=== PATIENT | male | born 1970 | race Hispanic/Latino ===

== ENCOUNTER 2018-08-04 21:25 | Inpatient (IN) | payer OTHER ==
[~2018-08-04] VITALS: Ht 167.6 cm; Wt 102.1 kg
[2018-08-04] MEDS ORDERED: CEFTRIAXONE SODIUM 1 GM ONE ×2 (22:10→22:23)
[2018-08-04] MEDS ORDERED: ACETAMINOPHEN EXTRA STRENGTH 500 MG TABLET ONE (22:11)
[2018-08-04 22:16] LABS: BASOPHILS % (AUTO) 0.4 % (0.0-5.0); EOSINOPHILS % (AUTO) 2.6 % (0.0-8.0); HEMATOCRIT 31.9 % (42-54); MEAN CORPUSCULAR HEMOGLOBIN 32.1 pg (27.0-33.0); MEAN CORPUSCULAR HGB CONC 33.3 g/dL (32.0-36.0); MEAN CORPUSCULAR VOLUME 96.2 fL (79-99); MONOCYTES % (AUTO) 12.5 % (3.0-13.0); NEUTROPHILS % (AUTO) 65.5 % (40.0-77.0); NUCLEATED RED BLOOD CELLS 0.1 % (0.0-0.19); PLATELET COUNT (AUTO) 112 K/uL (130-400); RED BLOOD CELL COUNT(AUTO) 3.31 MIL/uL (4.50-6.20); RED CELL DISTRIBUTION WIDTH 13.6 % (11.0-15.5); WHITE BLOOD COUNT (AUTO) 7.9 K/uL (4.8-10.8)
[2018-08-04 22:27] LABS: CARBON DIOXIDE 23 mmol/L (21-32); CHLORIDE 109 mmol/L (101-111); CREATININE 0.8 mg/dL (0.5-1.5); GLOMERULAR FILTR. RATE CALC 109 mL/min (>60); GLUCOSE,RANDOM 117 mg/dL (70-105); POTASSIUM 3.6 mmol/L (3.5-5.1); SODIUM SERUM 142 mmol/L (136-145); UREA NITROGEN, BLOOD 10 mg/dL (7-18)
[2018-08-04 22:31] LABS: INR 1.03 (0.85-1.15); PROTHROMBIN TIME 10.8 SEC (9.6-11.6)
[2018-08-04 22:38] LABS: ALANINE AMINOTRANSFERASE 18 U/L (12-78); ALBUMIN 2.9 g/dL (3.5-5.0); ASPARTATE AMINOTRANSFERASE 19 U/L (10-37); BILIRUBIN,TOTAL 0.1 mg/dL (0.2-1.0); CREATINE KINASE, TOTAL 133 U/L (21-232); MYOGLOBIN 32 ng/mL (10-92); TOTAL PROTEIN, SERUM 6.1 g/dL (6.0-8.3); TROPONIN I < 0.04 ng/mL (0.00-0.06)
[2018-08-04] MEDS ORDERED: KETOROLAC TROMETHAMINE 30MG/ML ONE (23:31)
[2018-08-04 23:36] LABS: BILIRUBIN,URINE Negative (NEGATIVE); COLOR,URINE Yellow (YELLOW); GLUCOSE, URINE (UA) Negative (NEGATIVE); KETONES,URINE Negative (NEGATIVE); LEUKOCYTE ESTERASE ,URINE Negative (NEGATIVE); NITRATE,URINE Negative (NEGATIVE); OCCULT BLOOD,URINE Negative (NEGATIVE); PH,URINE >=9.0 (5.0-8.0); PROTEIN,URINE Negative (NEGATIVE); UROBILINOGEN,URINE 0.2 mg/dL (0.2-1.0)
[2018-08-04 23:37] LABS: APPEARANCE,URINE SLIGHTLY CLOUDY (CLEAR)
[2018-08-04 23:44] LABS: AMPHET/METH SCREEN,URINE NEGATIVE (NEGATIVE); BARBITURATE SCREEN, URINE NEGATIVE (NEGATIVE); BENZODIAZEPINES SCREEN,URINE NEGATIVE (NEGATIVE); CANNABINOID SCREEN,URINE NEGATIVE (NEGATIVE); COCAINE SCREEN,URINE NEGATIVE (NEGATIVE); OPIATE SCREEN,URINE NEGATIVE (NEGATIVE); PHENCYCLIDINE SCREEN,URINE NEGATIVE (NEGATIVE)
[2018-08-04] MEDS ORDERED: FOSPHENYTOIN SODIUM 500 MG/10ML VIAL IJ ONE (23:56)
[2018-08-05 00:05] LABS: BACTERIA,URINE Few /HPF (None Seen); WBC,URINE 0-1 /HPF (0-1)
[2018-08-05 00:06] LABS: AMORPHOUS SEDIMENT,UR Many /LPF (None Seen); SQUAMOUS EPITHELIAL CELL,UR 0-2 /HPF (0-2)
[2018-08-05] MEDS ORDERED: ACETAMINOPHEN 325 MG TAB PO PRN ×2 (01:30)
[2018-08-05] MEDS ORDERED: MORPHINE SULFATE 4 MG/1ML SYG IV PRN (01:30)
[2018-08-05] MEDS ORDERED: ONDANSETRON HCL 4 MG/2 ML VIAL IV PRN (01:30)
[2018-08-05] MEDS ORDERED: CEFTRIAXONE SODIUM 1 GM IV SCH (01:30)
[2018-08-05] MEDS ORDERED: LORAZEPAM 2 MG/ML 1 ML VIAL IVP ONE (01:45)
[2018-08-05] MEDS ORDERED: CEFTRIAXONE SODIUM 1 GM ONE (01:55)
[2018-08-05] MEDS ORDERED: LORAZEPAM 2 MG/ML 1 ML VIAL ONE (02:45)
[2018-08-05] MEDS ORDERED: LEVETIRACETAM 500 MG/5 ML SD VIAL IV ONE (02:45)
[2018-08-05] MEDS ORDERED: FENTANYL CITRATE PF 50 MCG/1 ML 2ML VIAL ONE (05:00)
[2018-08-05] MEDS: LEVETIRACETAM 1,000 MG in SODIUM CHLORIDE 0.9% 100 ML IV SCH ×3 (06:00→22:00)
[2018-08-05] MEDS ORDERED: FAMOTIDINE/PF 20 MG/2 ML VIAL IV ONE ×2 (10:59→21:29)
[2018-08-05] MEDS ORDERED: ONDANSETRON HCL 4 MG/2 ML VIAL ONE ×2 (12:31→18:53)
[2018-08-05] MEDS ORDERED: MORPHINE SULFATE 4 MG/1ML SYG ONE ×2 (12:32→18:53)
[2018-08-05] MEDS ORDERED: LEVETIRACETAM 500 MG TABLET PO ONE (21:06)
[2018-08-05] MEDS ORDERED: ACETAMINOPHEN 325 MG TAB ONE (22:51)
[2018-08-06] MEDS ORDERED: CEFTRIAXONE SODIUM 1 GM ONE (03:22)
[2018-08-06] MEDS: LEVETIRACETAM 1,000 MG in SODIUM CHLORIDE 0.9% 100 ML IV SCH ×2 (06:00→14:00)
[2018-08-06 07:09] LABS: BASOPHILS % (AUTO) 0.5 % (0.0-5.0); EOSINOPHILS % (AUTO) 0.9 % (0.0-8.0); HEMATOCRIT 44.9 % (42-54); LYMPHOCYTES % (AUTO) 14.3 % (21.0-51.0); MEAN CORPUSCULAR HGB CONC 33.7 g/dL (32.0-36.0); MEAN CORPUSCULAR VOLUME 94.9 fL (79-99); NEUTROPHILS % (AUTO) 68.3 % (40.0-77.0); PLATELET COUNT (AUTO) 154 K/uL (130-400); RED BLOOD CELL COUNT(AUTO) 4.73 MIL/uL (4.50-6.20); RED CELL DISTRIBUTION WIDTH 13.7 % (11.0-15.5); WHITE BLOOD COUNT (AUTO) 6.4 K/uL (4.8-10.8)
[2018-08-06 07:29] LABS: CREATININE 0.8 mg/dL (0.5-1.5); POTASSIUM 4.2 mmol/L (3.5-5.1)
[2018-08-06] MEDS ORDERED: LEVETIRACETAM 500 MG TABLET PO ONE (08:14)
[2018-08-06] MEDS ORDERED: FAMOTIDINE/PF 20 MG/2 ML VIAL IV ONE (08:19)
[2018-08-06] MEDS ORDERED: GUAIFENESIN-DM 200/20 MG 10 ML PO PRN (11:30)
[2018-08-06] MEDS ORDERED: ACETAMINOPHEN 325 MG TAB ONE (12:39)
[2018-08-06] MEDS ORDERED: LEVOFLOXACIN 750 MG/D5W 150 ML 150 ML ONE (16:27)
[2018-08-06] MEDS ORDERED: ACETAMINOPHEN EXTRA STRENGTH 500 MG TABLET ONE (16:27)
[2018-08-06] MEDS ORDERED: ACETAMINOPHEN EXTRA STRENGTH 500 MG TABLET PO PRN (16:30)
[2018-08-06] MEDS ORDERED: LEVOFLOXACIN 500 MG/D5W 100 ML 100 ML IV SCH (16:30)
[2018-08-06 17:30] VITALS: BP 119/86
[2018-08-06] MEDS: FAMOTIDINE/PF 20 MG/2 ML VIAL IV SCH ×2 (17:40→20:31)
[2018-08-06] MEDS: LEVETIRACETAM 500 MG TABLET PO SCH ×3 (17:41→20:40)
[2018-08-06] MEDS: CARBAMAZEPINE 200 MG TAB.ER.12H PO SCH ×3 (17:41→20:39)
[2018-08-06] MEDS: ZONISAMIDE 100 MG PO SCH ×2 (17:42→20:40)
[2018-08-06] MEDS: LAMOTRIGINE 25 MG TAB PO SCH ×4 (17:42→20:40)
--- NOTE | 2018-08-06 18:30 | NUR ---
ADMISSION RECEIVED PT FROM ER, A&OX3, CALM COOPERATIVE AND DOES NOT APPEAR TO BE IN ANY DISTRESS NOR ANY NEURO DEFICITS PRESENT. PT DOES HAVE LEFT SIDED FACIAL BRUISING BUT DENIES DIZZINESS OR LIGHTHEADEDNESS. PT DOES C/O GENERALIZED BODY ACHES. NO COMMUNICATION DEFICITS. CALL LIGHT WITHIN REACH, FAMILY AT BEDSIDE.
[2018-08-06] MEDS ORDERED: LAMO150T5 PO (18:43)
[2018-08-06] MEDS ORDERED: LAMO25TA15 PO (18:43)
[2018-08-06] MEDS ORDERED: LEVE1000 PO (18:43)
[2018-08-06] MEDS ORDERED: LAMO100T13 PO (18:43)
[2018-08-06] MEDS ORDERED: ZONI100C6 PO (18:43)
[2018-08-06] MEDS ORDERED: LEVE500T8 PO (18:43)
[2018-08-06] MEDS ORDERED: CARB200T6 PO (18:43)
[2018-08-06 19:00] VITALS: BP 134/81
[2018-08-06] MEDS ORDERED: SODIUM CHLORIDE 0.9% 10 ML VIAL ONE (20:26)
[2018-08-06] MEDS: CEFTRIAXONE SODIUM 1 GM IV SCH (20:31)
[2018-08-06 23:00] VITALS: BP 138/83
[2018-08-07 03:00] VITALS: BP 140/85
[2018-08-07 05:05] LABS: BASOPHILS % (AUTO) 0.4 % (0.0-5.0); EOSINOPHILS % (AUTO) 1.2 % (0.0-8.0); HEMATOCRIT 43.2 % (42-54); LYMPHOCYTES % (AUTO) 14.7 % (21.0-51.0); MEAN CORPUSCULAR HGB CONC 33.8 g/dL (32.0-36.0); MEAN CORPUSCULAR VOLUME 94.5 fL (79-99); MONOCYTES % (AUTO) 15.7 % (3.0-13.0); PLATELET COUNT (AUTO) 169 K/uL (130-400); RED BLOOD CELL COUNT(AUTO) 4.57 MIL/uL (4.50-6.20); RED CELL DISTRIBUTION WIDTH 13.5 % (11.0-15.5); WHITE BLOOD COUNT (AUTO) 6.2 K/uL (4.8-10.8)
[2018-08-07 05:16] LABS: CREATININE 0.9 mg/dL (0.5-1.5)
[2018-08-07 08:28] VITALS: BP 136/89
--- NOTE | 2018-08-07 08:40 | NUR ---
DC Plan Discussed dcp w/ patient and at bedside. Denies HH or provider services. Uses a CPAP at night. States unable to drive. Only able to do light house work. 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 States has fallen recently. States feels safe returning home w/ . Current DCP is to home w/ . CD Addendum: 08/07/18 at 0842 by LILLIAM GASCA CM Amended: Links added.
[2018-08-07] MEDS: CARBAMAZEPINE 200 MG TAB.ER.12H PO SCH ×3 (08:42→20:07)
[2018-08-07] MEDS: LEVOFLOXACIN 500 MG/D5W 100 ML 100 ML IV SCH (08:42)
[2018-08-07] MEDS: LEVETIRACETAM 500 MG TABLET PO SCH ×2 (08:43→20:07)
[2018-08-07] MEDS: LAMOTRIGINE 25 MG TAB PO SCH ×3 (08:43→20:07)
[2018-08-07] MEDS: FAMOTIDINE 20MG TAB 20 MG TAB PO SCH ×2 (08:43→19:57)
[2018-08-07] MEDS ORDERED: CEFTRIAXONE SODIUM 1 GM IV SCH (09:00)
[2018-08-07 11:57] VITALS: BP 141/89
[2018-08-07 15:57] VITALS: BP 146/95
[2018-08-07 19:56] VITALS: BP 142/93
[2018-08-07] MEDS: CEFTRIAXONE SODIUM 1 GM IV SCH (19:57)
[2018-08-07] MEDS: ZONISAMIDE 100 MG PO SCH (20:07)
[2018-08-07] MEDS: POLYETHYLENE GLYCOL 3350 17 GM POWD.PACK PO SCH (20:10)
[2018-08-07 23:20] VITALS: BP 129/93
[2018-08-08 04:04] LABS: BASOPHILS % (AUTO) 0.4 % (0.0-5.0); EOSINOPHILS % (AUTO) 3.7 % (0.0-8.0); HEMATOCRIT 42.8 % (42-54); LYMPHOCYTES % (AUTO) 28.9 % (21.0-51.0); MEAN CORPUSCULAR HEMOGLOBIN 32.1 pg (27.0-33.0); MEAN CORPUSCULAR HGB CONC 34.2 g/dL (32.0-36.0); MONOCYTES % (AUTO) 17.1 % (3.0-13.0); NEUTROPHILS % (AUTO) 49.9 % (40.0-77.0); NUCLEATED RED BLOOD CELLS 0.1 % (0.0-0.19); PLATELET COUNT (AUTO) 164 K/uL (130-400); RED BLOOD CELL COUNT(AUTO) 4.55 MIL/uL (4.50-6.20); RED CELL DISTRIBUTION WIDTH 13.2 % (11.0-15.5); WHITE BLOOD COUNT (AUTO) 5.3 K/uL (4.8-10.8)
[2018-08-08 04:14] VITALS: BP 127/84
[2018-08-08 04:15] LABS: CREATININE 0.9 mg/dL (0.5-1.5); POTASSIUM 3.6 mmol/L (3.5-5.1)
[2018-08-08 07:55] VITALS: BP 126/82
--- NOTE | 2018-08-08 08:00 | NUR ---
MD VISIT DR VILLARREAL IN TO SEE PT. PLAN OF CARE REVIEWED W/PT & . POSS DC HOME TODAY. PENDING DR DUENAS TO SEE PT. MD INFORMED BY PT'S , DR PIÑA TO RE-EVALUATE.
[2018-08-08] MEDS: LEVETIRACETAM 500 MG TABLET PO SCH (09:00)
[2018-08-08] MEDS: CARBAMAZEPINE 200 MG TAB.ER.12H PO SCH ×2 (09:00→11:19)
[2018-08-08] MEDS: LAMOTRIGINE 25 MG TAB PO SCH ×2 (09:00→11:19)
--- NOTE | 2018-08-08 09:58 | NUR ---
MD VISIT DR DUENAS IN TO SEE PT. PT'S @ BEDSIDE. CONSULT INFO RELAYED. PLAN OF CARE REVIEWED. DR DUENAS PLANNED TO CHANGE DOSE ON PT'S SEIZURE MEDICATIONS. PT'S INFORMED DR DUENAS, PER PT'S NEUROLOGIST SEIZURE MEDICATIONS DOSES TO REMAIN THE SAME. DR DUENAS MADE NO CHANGES TO PT'S SEIZURE MEDICATIONS. PT TO BE EVALUATED BY PHYS THERAPY AND DETERMINE DCP FOR PT, POSS INPT REHAB.
[2018-08-08] MEDS ORDERED: SODIUM CHLORIDE 0.9% 500ML 500 ML IV ONE (10:27)
[2018-08-08] MEDS: FAMOTIDINE 20MG TAB 20 MG TAB PO SCH (10:28)
[2018-08-08] MEDS: LEVOFLOXACIN 500 MG/D5W 100 ML 100 ML IV SCH (10:28)
[2018-08-08] MEDS: POLYETHYLENE GLYCOL 3350 17 GM POWD.PACK PO SCH (10:29)
[2018-08-08 11:49] VITALS: BP 127/89
[2018-08-08 16:00] VITALS: BP 139/88
--- NOTE | 2018-08-08 17:45 | NUR ---
DISCHARGE TELE [place] REMOVED. IV DISCONTINUED. PT' IF PT TO BE DISCHARGED ON ANTIBIOTICS & BREATHING TREATMENTS FOR THE PNA TOLD THIS AM BY DR VILLARREAL. INFORMED PT & , NO PRESCRIPTION ENTERED BY DR VILLARREAL, PT TO CONTINUE HOME MEDICATIONS. WILL BE CALLING BACK @ THIS TIME AND WILL RETURN TO TO CONT W/DISCHARGE PROCESS. LEXIS PURDY NOTIFIED.
--- NOTE | 2018-08-08 17:55 | NUR ---
DISCHARGE ORDER FOR PRESCRIPTION FOR LEVAQUIN TO BE CALLED IN TO PT'S PHARMACY IN FILE BY LEXIS PURDY. VERBAL & WRITTEN DISCHARGE INSTRUCTIONS REVIEWED & GIVEN TO PT & . QUESTIONS ENCOURAGED & CLARIFIED. PROPER CARE, MGT, & PREVENTION OF SEIZURES REVIEWED. NEW PRESCRIBED MEDICATION REVIEWED. PT & INFORMED PRESCRIPTION CALLED IN TO [facility]. PT & GATHERED PERSONAL BELONGINGS EARLIER. WILL NOTIFY STAFF WHEN READY TO BE TAKEN TO PRIVATE VEHICLE.
--- NOTE | 2018-08-08 18:15 | NUR ---
DISCHARGE PT TAKEN TO PRIVATE VEHICLE VIA WC BY Jessi CID PCP. PT'S AWAITING IN PRIVATE VEHICLE. NO DISTRESS NOTED.
== END 2018-08-08 18:15 | disposition home or self-care (01) | DRG 85 ==
LOC: EDH 21:25 → EDHIP 08-05 00:45 → 2DH 08-06 16:50 → 2AH 08-06 16:50
PROVIDERS: ADMIT Internal Medicine; ATTEND Internal Medicine
DX: S06.6X0A Traumatic subarachnoid hemorrhage without loss of consciousness, initial encounter (principal); J18.9 Pneumonia, unspecified organism; G40.209 Localization-related (focal) (partial) symptomatic epilepsy and epileptic syndromes with complex partial seizures, not intractable, without status epilepticus; K59.00 Constipation, unspecified; W19.XXXA Unspecified fall, initial encounter; Y93.01 Activity, walking, marching and hiking; Y92.512 Supermarket, store or market as the place of occurrence of the external cause; Y99.8 Other external cause status
CPT/HCPCS: 36415; 70450; 71045; 71250; 72125; 72170; 74176; 80048; 80053; 80305; 81001; 82550; 83605; 83735; 83874; 84100; 84484; 85025; 85610; 85730; 87040; 87088; 87804; 93005; 97039; G0378; G0480; J0696; J1885; J1953; J1956; J2060; J2270; J2405; J3010; J3490; J7040; Q2009

== ENCOUNTER → 2018-08-16 | Outpatient (CLI) | payer OTHER ==
[~2018-08-16] MED LIST: CARB200T6 PO; LAMO100T13 PO; LAMO150T5 PO; LAMO25TA15 PO; LEVE1000 PO; LEVE500T8 PO; ZONI100C6 PO
== END | disposition home or self-care (01) ==
LOC: RAH 10:00
PROVIDERS: ATTEND Neurological Surgery
DX: S06.369A Traumatic hemorrhage of cerebrum, unspecified, with loss of consciousness of unspecified duration, initial encounter (principal); X58.XXXA Exposure to other specified factors, initial encounter; Y93.89 Activity, other specified; Y92.89 Other specified places as the place of occurrence of the external cause; Y99.8 Other external cause status
CPT/HCPCS: 70450